=== PATIENT | male | born 1985 | race African-American/Black ===

== ENCOUNTER 2016-04-06 17:22 | Outpatient (CLI) | payer BC ==
[2016-04-06 18:25] LABS: ALT (SGPT) 31 U/L (0-55); AST (SGOT) 22 U/L (5-34); Alkaline Phosphatase 72 U/L (40-150); Anion Gap 16 mmol/L (10-20); BUN (Urea Nitrogen) 14 mg/dL (8.9-20.6); Bilirubin, Total 0.5 mg/dL (0.2-1.2); Calc. Creatinine Clearance 0 mL/min (70-130); Calcium 9.8 mg/dL (7.8-10.44); Carbon Dioxide 24 mmol/L (22-29); Chloride 104 mmol/L (98-107); Estimated GFR-MDRD Greater than 90; Globulin 3.7 g/dL (2.4-3.5); Protein, Total 8.5 g/dL (6.0-8.3)
[2016-04-06 18:44] LABS: #Basophils 0.1 thou/uL (0.0-0.2); #Eosinphils 0.2 thou/uL (0.0-0.7); #Lymphocytes 1.6 thou/uL (1.20-3.40); #Monocytes 0.6 thou/uL (0.11-0.59); #Neutrophils 7.1 thou/uL (1.40-6.50); %Basophils 0.8 % (0.0-1.0); %Eosinophils 2.3 % (0.0-10.0); %Lymphocytes 16.7 % (21.0-51.0); %Monocytes 6.1 % (0.0-10.0); Hematocrit 47.2 % (42.0-52.0); Mean Platelet Volume 7.4 fL (7.4-10.4); Red Blood Cell (RBC) Count 5.24 mill/uL (4.70-6.10); White Blood Cell (WBC) Count 9.5 thou/uL (4.8-10.8)
[2016-04-06 19:21] LABS: Hemoglobin A1c 5.6 % (4.0-6.0)
== END 2016-04-06 17:23 ==
LOC: NAV SJFMSP 17:22
PROVIDERS: ATTEND Family Medicine
DX: Z00.00 Encounter for general adult medical examination without abnormal findings (principal)
CPT/HCPCS: 80053; 83036; 84439; 84443; 85025

== ENCOUNTER 2017-04-05 21:46 | Emergency (ER) | payer BC ==
[2017-04-05] MEDS ORDERED: Metoclopramide HCl 10 MG/2 ML VIAL ONE (22:20)
[2017-04-05] MEDS ORDERED: diphenhydrAMINE 50 MG/ML VIAL ONE (22:20)
[2017-04-05] MEDS ORDERED: Sodium Chloride 0.9% 1,000 ML ONE (22:20)
== END 2017-04-05 23:49 | disposition home or self-care (01) ==
LOC: NAV ERS 21:46
DX: G43.909 Migraine, unspecified, not intractable, without status migrainosus (principal)
CPT/HCPCS: 87804; 96365; 96375; J1200; J2765; J7050